=== PATIENT | male | born 1935 | race Caucasian/White ===

== ENCOUNTER 2021-04-15 18:45 | Inpatient (IN) | payer MEDICAID, OTHER ==
[~2021-04-15] VITALS: Ht 165.1 cm; Wt 59.0 kg
[~2021-04-15 18:45] MED LIST: METF-414 PO
[2021-04-15] MEDS ORDERED: ACETAMINOPHEN 650MG SUPP PR STA (19:24)
[2021-04-15] MEDS ORDERED: AZITHROMYCIN 500MG/250ML 250 ML IV ONE (19:30)
[2021-04-15] MEDS ORDERED: CEFTRIAXONE 1 G PREMIX 50 ML IV ONE (19:30)
[2021-04-15] MEDS ORDERED: SODIUM CHLORIDE 0.9% 1,000 ML IV ONE (19:30)
[2021-04-15 20:13] LABS: CHLORIDE 105 mEq/L (98-107)
[2021-04-15 20:22] LABS: CREATINE KINASE 118 IU/L (39-308)
[2021-04-15 20:26] LABS: HEMATOCRIT. 37.9 % (42.0-52.0); HEMOGLOBIN. 12.6 g/dL (14.0-18.0); MEAN CORPUSCULAR HEMOGLOBIN 29.3 pg (28.0-32.0); MEAN CORPUSCULAR VOLUME 88.6 fL (80.0-94.0); MEAN PLATELET VOLUME 8.5 fl (7.4-10.4); PLATELET 309 x1000/uL (130-400); RED BLOOD CELL COUNT 4.28 mill/uL (4.7-6.1); RED CELL DISTRIBUTION WIDTH 13.6 % (11.6-14.6)
[2021-04-15] MEDS ORDERED: DEXAMETHASONE 10 MG/ML VIAL IV NR (20:45)
[2021-04-15 22:49] LABS: PLATELET ESTIMATE NORMAL
[2021-04-15] MEDS ORDERED: MAGNESIUM/ALUMINUM HYDROXIDE/SIMETHICONE 30ML UDC PO PRN (23:00)
[2021-04-15] MEDS ORDERED: ACETAMINOPHEN 325MG TABLET PO PRN (23:00)
[2021-04-15] MEDS ORDERED: CLONIDINE 0.1MG TABLET PO PRN (23:00)
[2021-04-15] MEDS ORDERED: DOCUSATE SODIUM 100MG CAPSULE PO PRN (23:00)
[2021-04-15] MEDS: PANTOPRAZOLE 40MG DR TABLET PO SCH (23:00)
[2021-04-15] MEDS ORDERED: NALOXONE HCL 0.4 MG/ML 1ML VIAL IV PRN (23:45)
[2021-04-16] MEDS ORDERED: ALBUTEROL 6.7GM HFA INHALER ORI PRN
[2021-04-16 04:24] LABS: HEMATOCRIT. 34.6 % (42.0-52.0); HEMOGLOBIN. 11.6 g/dL (14.0-18.0); MEAN CORPUSCULAR HEMOGLOBIN 29.3 pg (28.0-32.0); MEAN CORPUSCULAR VOLUME 87.5 fL (80.0-94.0); MEAN PLATELET VOLUME 8.7 fl (7.4-10.4); PLATELET 284 x1000/uL (130-400); RED BLOOD CELL COUNT 3.96 mill/uL (4.7-6.1); RED CELL DISTRIBUTION WIDTH 13.5 % (11.6-14.6)
[2021-04-16 04:32] LABS: CHLORIDE 107 mEq/L (98-107)
[2021-04-16 04:40] LABS: LDL CHOLESTEROL 62 mg/dL (5-100)
[2021-04-16 04:41] LABS: CREATINE KINASE 147 IU/L (39-308)
[2021-04-16 04:42] LABS: CREATINE KINASE MB FRACTION 3.2 ng/mL (0.5-3.6); HDL CHOLESTEROL 43 mg/dL (40-59)
[2021-04-16 05:14] LABS: PLATELET ESTIMATE NORMAL
[2021-04-16] MEDS: PANTOPRAZOLE 40MG DR TABLET PO SCH (08:55)
[2021-04-16] MEDS: ENOXAPARIN 40MG/0.4ML SYR SUBCUT SCH (08:56)
[2021-04-16] MEDS ORDERED: DEXAMETHASONE 4MG/ML 1ML VIAL IV SCH (09:00)
[2021-04-16 17:25] VITALS: BP 133/72
[2021-04-16] MEDS: BLOOD SUGAR DIAGNOSTIC STRIP TEST SCH ×2 (17:41→21:32)
[2021-04-16] MEDS: INSULIN LISPRO 100 UNITS/ML SUBCUT SCH ×2 (18:39→21:41)
[2021-04-16 20:00] VITALS: BP 124/63
[2021-04-16] MEDS ORDERED: AZITHROMYCIN 500 MG in DEXT 5% WATER 250 ML IV SCH (20:00)
[2021-04-16] MEDS ORDERED: CEFTRIAXONE 1,000 MG in DEXTROSE 5% WATER 50 ML IV SCH (21:00)
[2021-04-16 21:24] LABS: CREATINE KINASE 170 IU/L (39-308)
[2021-04-16 21:26] LABS: CREATINE KINASE MB FRACTION 5.4 ng/mL (0.5-3.6)
[2021-04-16] MEDS ORDERED: INSULIN GLARGINE UD 100 UNITS/ML SYR SUBCUT SCH ×2 (22:00→23:00)
[2021-04-17 02:58] LABS: CLARITY URINE CLEAR (CLEAR); COLOR URINE YELLOW (YELLOW); PH URINE 5.5 (4.5-8.0); SPECIFIC GRAVITY URINE 1.031 (1.005-1.030)
[2021-04-17 02:59] LABS: PROTEIN URINE 1+ (NEGATIVE)
[2021-04-17 03:00] LABS: KETONES URINE TRACE (NEGATIVE); LEUKOCYTE ESTERASE URINE NEGATIVE (NEGATIVE); NITRITE URINE NEGATIVE (NEGATIVE); OCCULT BLOOD URINE NEGATIVE (NEGATIVE); UROBILINOGEN URINE 0.2 E.U./dL (0.2-1.0)
[2021-04-17] MEDS: GUAIFENESIN-DM 200MG-20MG/10ML UDC PO PRN (04:25)
[2021-04-17 06:00] VITALS: BP_SYST 112; BP_SYST 153; BP_DIAS 62; BP_DIAS 94
[2021-04-17] MEDS: BLOOD SUGAR DIAGNOSTIC STRIP TEST SCH ×4 (07:33→21:00)
[2021-04-17 08:06] LABS: HEMATOCRIT. 36.2 % (42.0-52.0); HEMOGLOBIN. 11.9 g/dL (14.0-18.0); MEAN CORPUSCULAR HEMOGLOBIN 28.6 pg (28.0-32.0); MEAN CORPUSCULAR VOLUME 87.5 fL (80.0-94.0); MEAN PLATELET VOLUME 8.9 fl (7.4-10.4); PLATELET 332 x1000/uL (130-400); RED BLOOD CELL COUNT 4.14 mill/uL (4.7-6.1); RED CELL DISTRIBUTION WIDTH 13.4 % (11.6-14.6)
[2021-04-17] MEDS: PANTOPRAZOLE 40MG DR TABLET PO SCH (08:18)
[2021-04-17] MEDS: INSULIN LISPRO 100 UNITS/ML SUBCUT SCH ×4 (08:19→21:00)
[2021-04-17] MEDS: DEXAMETHASONE 4MG/ML 1ML VIAL IV SCH (08:19)
[2021-04-17] MEDS: ENOXAPARIN 40MG/0.4ML SYR SUBCUT SCH (08:20)
[2021-04-17 08:42] LABS: CHLORIDE 108 mEq/L (98-107)
[2021-04-17 12:00] VITALS: BP 111/59
[2021-04-17] MEDS: CEFTRIAXONE 1,000 MG in DEXTROSE 5% WATER 50 ML IV SCH (13:33)
[2021-04-17] MEDS: AZITHROMYCIN 500 MG in DEXT 5% WATER 250 ML IV SCH (13:33)
[2021-04-17 16:00] VITALS: BP 108/54
[2021-04-17 17:59] LABS: PLATELET ESTIMATE NORMAL
[2021-04-17 20:00] VITALS: BP 123/78
[2021-04-17] MEDS: BENZONATATE 100MG CAPSULE PO PRN (21:11)
[2021-04-17] MEDS: GUAIFENESIN 600MG ER TABLET PO SCH (21:14)
[2021-04-17] MEDS: INSULIN GLARGINE UD 100 UNITS/ML SYR SUBCUT SCH (21:17)
[2021-04-18 00:05] VITALS: BP 123/70
[2021-04-18 04:00] VITALS: BP 121/80
[2021-04-18] MEDS: BLOOD SUGAR DIAGNOSTIC STRIP TEST SCH ×4 (05:40→20:57)
[2021-04-18] MEDS: INSULIN LISPRO 100 UNITS/ML SUBCUT SCH ×4 (05:42→21:00)
[2021-04-18 08:00] VITALS: BP 115/67
[2021-04-18] MEDS: ENOXAPARIN 40MG/0.4ML SYR SUBCUT SCH (08:50)
[2021-04-18] MEDS: DEXAMETHASONE 4MG/ML 1ML VIAL IV SCH (08:51)
[2021-04-18] MEDS: GUAIFENESIN 600MG ER TABLET PO SCH ×2 (08:51→21:34)
[2021-04-18] MEDS: FAMOTIDINE 20MG TABLET PO SCH (08:51)
[2021-04-18 09:19] LABS: CHLORIDE 107 mEq/L (98-107)
[2021-04-18 09:27] LABS: HEMOGLOBIN. 12.8 g/dL (14.0-18.0); MEAN CORPUSCULAR HEMOGLOBIN 28.7 pg (28.0-32.0); MEAN CORPUSCULAR VOLUME 87.8 fL (80.0-94.0); MEAN PLATELET VOLUME 9.1 fl (7.4-10.4); PLATELET 336 x1000/uL (130-400); RED BLOOD CELL COUNT 4.45 mill/uL (4.7-6.1); RED CELL DISTRIBUTION WIDTH 13.8 % (11.6-14.6)
[2021-04-18] MEDS: INSULIN GLARGINE UD 100 UNITS/ML SYR SUBCUT SCH ×2 (10:33→21:39)
[2021-04-18 10:39] LABS: BG CARBOXYHEMOGLOBIN 0.5 % (0.5-1.5); BG DEOXYHEMOGLOBIN 12.7 % (0.0-5.0); BG FRACTION INSPIRED OXYGEN 99.8; BG HCO3 ACT 24.2 mmol/L (22.0-26.0); BG METHEMOGLOBIN 0.3 % (0.0-1.5); BG OXYGEN SATURATION 87.2 % (92.0-98.5); BG OXYHEMOGLOBIN 86.5 % (94.0-97.0); BG PCO2 33.8 mmHg (35.0-45.0); BG PH 7.472 (7.350-7.450); BG PO2 51.4 mmHg (75.0-100.0); BG SAMPLE SITE RIGHT RADIAL; BG TOTAL HEMOGLOBIN 12.9 g/dL (12.0-18.0); BG VENT MODE MASK - NRB
[2021-04-18 11:59] VITALS: BP 141/78
[2021-04-18] MEDS: CEFTRIAXONE 1,000 MG in DEXTROSE 5% WATER 50 ML IV SCH (12:14)
[2021-04-18] MEDS: AZITHROMYCIN 500 MG in DEXT 5% WATER 250 ML IV SCH (13:08)
[2021-04-18 15:58] VITALS: BP 140/86
[2021-04-18 20:00] VITALS: BP 154/98
[2021-04-18 20:21] LABS: PLATELET ESTIMATE NORMAL
[2021-04-18] MEDS: HYDROCODONE/ACETAMINOPHEN 5/325MG TABLET PO PRN (21:35)
[2021-04-19] VITALS (7 sets, daily range): BP systolic 110–140; BP diastolic 67–82
[2021-04-19] MEDS: BENZONATATE 100MG CAPSULE PO PRN (02:36)
[2021-04-19] MEDS: GUAIFENESIN-DM 200MG-20MG/10ML UDC PO PRN (02:36)
[2021-04-19] MEDS: HYDROCODONE/ACETAMINOPHEN 5/325MG TABLET PO PRN ×3 (02:37→15:45)
[2021-04-19] MEDS: BLOOD SUGAR DIAGNOSTIC STRIP TEST SCH ×4 (06:01→20:54)
[2021-04-19] MEDS: FAMOTIDINE 20MG TABLET PO SCH (08:33)
[2021-04-19] MEDS: GUAIFENESIN 600MG ER TABLET PO SCH ×2 (08:33→20:16)
[2021-04-19] MEDS: DEXAMETHASONE 4MG/ML 1ML VIAL IV SCH (08:36)
[2021-04-19] MEDS: INSULIN LISPRO 100 UNITS/ML SUBCUT SCH ×4 (08:36→20:54)
[2021-04-19] MEDS: ENOXAPARIN 40MG/0.4ML SYR SUBCUT SCH (08:40)
[2021-04-19] MEDS: INSULIN GLARGINE UD 100 UNITS/ML SYR SUBCUT SCH ×2 (10:00→20:54)
[2021-04-19] MEDS ORDERED: LORAZEPAM 2MG/ML CPJ IV PRN (14:00)
[2021-04-19] MEDS: AZITHROMYCIN 500 MG in DEXT 5% WATER 250 ML IV SCH (14:16)
[2021-04-19] MEDS: CEFTRIAXONE 1,000 MG in DEXTROSE 5% WATER 50 ML IV SCH (14:16)
[2021-04-19] MEDS: DEXTROSE 50% WATER 50ML SYRINGE IV PRN (20:16)
[2021-04-20] VITALS: BP 137/75
[2021-04-20 04:00] VITALS: BP 136/81
[2021-04-20] MEDS: BLOOD SUGAR DIAGNOSTIC STRIP TEST SCH ×4 (07:01→21:00)
[2021-04-20] MEDS: INSULIN LISPRO 100 UNITS/ML SUBCUT SCH ×4 (07:01→21:00)
[2021-04-20 08:00] VITALS: BP 145/78
[2021-04-20] MEDS: FAMOTIDINE 20MG TABLET PO SCH (09:22)
[2021-04-20] MEDS: ENOXAPARIN 40MG/0.4ML SYR SUBCUT SCH (09:22)
[2021-04-20] MEDS: GUAIFENESIN 600MG ER TABLET PO SCH ×2 (09:22→22:27)
[2021-04-20] MEDS: DEXAMETHASONE 4MG/ML 1ML VIAL IV SCH (09:23)
[2021-04-20] MEDS: INSULIN GLARGINE UD 100 UNITS/ML SYR SUBCUT SCH ×2 (09:25→22:00)
[2021-04-20 12:00] VITALS: BP 119/58
[2021-04-20] MEDS: CEFTRIAXONE 1,000 MG in DEXTROSE 5% WATER 50 ML IV SCH (14:16)
[2021-04-20 16:00] VITALS: BP 128/62
[2021-04-20 20:00] VITALS: BP 131/84
[2021-04-21] VITALS: BP 145/84
[2021-04-21 04:00] VITALS: BP 133/78
[2021-04-21] MEDS: INSULIN LISPRO 100 UNITS/ML SUBCUT SCH ×4 (07:50→21:00)
[2021-04-21] MEDS: BLOOD SUGAR DIAGNOSTIC STRIP TEST SCH ×4 (07:50→21:59)
[2021-04-21 08:00] VITALS: BP 130/83
[2021-04-21 08:16] LABS: HEMATOCRIT. 39.1 % (42.0-52.0); HEMOGLOBIN. 12.7 g/dL (14.0-18.0); MEAN CORPUSCULAR HEMOGLOBIN 28.3 pg (28.0-32.0); MEAN CORPUSCULAR VOLUME 86.7 fL (80.0-94.0); MEAN PLATELET VOLUME 8.5 fl (7.4-10.4); PLATELET 259 x1000/uL (130-400); RED BLOOD CELL COUNT 4.51 mill/uL (4.7-6.1); RED CELL DISTRIBUTION WIDTH 13.6 % (11.6-14.6)
[2021-04-21 08:22] LABS: CHLORIDE 105 mEq/L (98-107)
[2021-04-21] MEDS: GUAIFENESIN 600MG ER TABLET PO SCH ×2 (10:08→22:13)
[2021-04-21] MEDS: FAMOTIDINE 20MG TABLET PO SCH (10:09)
[2021-04-21] MEDS: ENOXAPARIN 40MG/0.4ML SYR SUBCUT SCH (10:09)
[2021-04-21] MEDS: DEXAMETHASONE 4MG/ML 1ML VIAL IV SCH (10:09)
[2021-04-21] MEDS: INSULIN GLARGINE UD 100 UNITS/ML SYR SUBCUT SCH ×2 (10:10→22:13)
[2021-04-21 12:00] VITALS: BP 126/78
[2021-04-21 12:48] LABS: PLATELET ESTIMATE NORMAL
[2021-04-21 16:00] VITALS: BP 124/71
[2021-04-21 20:00] VITALS: BP 135/77
[2021-04-22] VITALS: BP 117/77
[2021-04-22 04:00] VITALS: BP 109/65
[2021-04-22] MEDS: BLOOD SUGAR DIAGNOSTIC STRIP TEST SCH ×4 (07:40→21:00)
[2021-04-22 07:51] LABS: HEMATOCRIT. 38.6 % (42.0-52.0); HEMOGLOBIN. 12.7 g/dL (14.0-18.0); MEAN CORPUSCULAR HEMOGLOBIN 28.5 pg (28.0-32.0); MEAN CORPUSCULAR VOLUME 86.5 fL (80.0-94.0); MEAN PLATELET VOLUME 8.5 fl (7.4-10.4); PLATELET 264 x1000/uL (130-400); RED BLOOD CELL COUNT 4.46 mill/uL (4.7-6.1); RED CELL DISTRIBUTION WIDTH 13.7 % (11.6-14.6)
[2021-04-22 07:56] LABS: CHLORIDE 107 mEq/L (98-107)
[2021-04-22 08:00] VITALS: BP 123/76
[2021-04-22] MEDS: INSULIN LISPRO 100 UNITS/ML SUBCUT SCH ×4 (08:10→21:19)
[2021-04-22] MEDS: FAMOTIDINE 20MG TABLET PO SCH (09:41)
[2021-04-22] MEDS: ENOXAPARIN 40MG/0.4ML SYR SUBCUT SCH (09:41)
[2021-04-22] MEDS: DEXAMETHASONE 4MG/ML 1ML VIAL IV SCH (09:42)
[2021-04-22] MEDS: INSULIN GLARGINE UD 100 UNITS/ML SYR SUBCUT SCH ×2 (09:42→21:19)
[2021-04-22] MEDS: GUAIFENESIN 600MG ER TABLET PO SCH ×2 (09:45→21:17)
[2021-04-22 11:02] LABS: PLATELET ESTIMATE NORMAL
[2021-04-22 12:00] VITALS: BP 125/69
[2021-04-22 16:00] VITALS: BP 125/77
[2021-04-22 20:00] VITALS: BP 149/85
[2021-04-23] VITALS: BP 108/62
[2021-04-23 04:00] VITALS: BP 121/71
[2021-04-23] MEDS: BLOOD SUGAR DIAGNOSTIC STRIP TEST SCH ×4 (05:53→21:00)
[2021-04-23] MEDS: DEXTROSE 50% WATER 50ML SYRINGE IV PRN (05:58)
[2021-04-23 06:13] LABS: HEMATOCRIT. 37.8 % (42.0-52.0); HEMOGLOBIN. 12.9 g/dL (14.0-18.0); MEAN CORPUSCULAR HEMOGLOBIN 29.3 pg (28.0-32.0); MEAN PLATELET VOLUME 8.6 fl (7.4-10.4); PLATELET 267 x1000/uL (130-400); RED CELL DISTRIBUTION WIDTH 13.4 % (11.6-14.6)
[2021-04-23 06:37] LABS: CHLORIDE 106 mEq/L (98-107)
[2021-04-23 08:00] VITALS: BP 124/76
[2021-04-23] MEDS: INSULIN LISPRO 100 UNITS/ML SUBCUT SCH ×4 (08:10→21:00)
[2021-04-23] MEDS: FAMOTIDINE 20MG TABLET PO SCH (09:30)
[2021-04-23] MEDS: GUAIFENESIN 600MG ER TABLET PO SCH ×2 (09:31→22:03)
[2021-04-23] MEDS: DEXAMETHASONE 4MG/ML 1ML VIAL IV SCH (09:31)
[2021-04-23] MEDS: ENOXAPARIN 40MG/0.4ML SYR SUBCUT SCH (09:31)
[2021-04-23] MEDS: INSULIN GLARGINE UD 100 UNITS/ML SYR SUBCUT SCH ×2 (10:00→14:40)
[2021-04-23 12:00] VITALS: BP 118/79
[2021-04-23 16:00] VITALS: BP 118/72
[2021-04-23 16:08] LABS: PLATELET ESTIMATE NORMAL
[2021-04-23 17:16] LABS: BG BASE EXCESS 2.9 mmol/L (-2.0-2.0); BG CARBOXYHEMOGLOBIN 1.1 % (0.5-1.5); BG DEOXYHEMOGLOBIN 7.2 % (0.0-5.0); BG FRACTION INSPIRED OXYGEN 100; BG HCO3 ACT 26.3 mmol/L (22.0-26.0); BG METHEMOGLOBIN 0.1 % (0.0-1.5); BG OXYGEN SATURATION 92.7 % (92.0-98.5); BG OXYHEMOGLOBIN 91.6 % (94.0-97.0); BG PCO2 36.7 mmHg (35.0-45.0); BG PH 7.473 (7.350-7.450); BG PO2 64.7 mmHg (75.0-100.0); BG SAMPLE SITE LEFT RADIAL; BG TOTAL HEMOGLOBIN 14.8 g/dL (12.0-18.0); BG VENT MODE MASK - NRB
[2021-04-23 20:00] VITALS: BP 114/63
[2021-04-24 00:32] VITALS: BP 114/76
[2021-04-24 04:00] VITALS: BP 115/66
[2021-04-24 05:24] LABS: HEMATOCRIT. 39.4 % (42.0-52.0); HEMOGLOBIN. 13.3 g/dL (14.0-18.0); MEAN CORPUSCULAR HEMOGLOBIN 29.1 pg (28.0-32.0); MEAN CORPUSCULAR VOLUME 86.4 fL (80.0-94.0); MEAN PLATELET VOLUME 8.5 fl (7.4-10.4); PLATELET 254 x1000/uL (130-400); RED BLOOD CELL COUNT 4.56 mill/uL (4.7-6.1); RED CELL DISTRIBUTION WIDTH 13.2 % (11.6-14.6)
[2021-04-24 06:46] LABS: CHLORIDE 110 mEq/L (98-107)
[2021-04-24] MEDS: BLOOD SUGAR DIAGNOSTIC STRIP TEST SCH ×4 (07:36→21:29)
[2021-04-24] MEDS: INSULIN LISPRO 100 UNITS/ML SUBCUT SCH ×4 (07:37→21:00)
[2021-04-24 08:00] VITALS: BP 117/64
[2021-04-24] MEDS: ENOXAPARIN 40MG/0.4ML SYR SUBCUT SCH (10:04)
[2021-04-24] MEDS: DEXAMETHASONE 10 MG/ML VIAL IV SCH (10:04)
[2021-04-24] MEDS: GUAIFENESIN 600MG ER TABLET PO SCH ×2 (10:04→21:52)
[2021-04-24] MEDS: FAMOTIDINE 20MG TABLET PO SCH (10:06)
[2021-04-24] MEDS: INSULIN GLARGINE UD 100 UNITS/ML SYR SUBCUT SCH (10:07)
[2021-04-24 12:00] VITALS: BP 105/68
[2021-04-24 16:00] VITALS: BP 140/77
[2021-04-24 17:23] LABS: PLATELET ESTIMATE NORMAL
[2021-04-25] VITALS (11 sets, daily range): BP systolic 96–126; BP diastolic 57–80
[2021-04-25] MEDS: INSULIN LISPRO 100 UNITS/ML SUBCUT SCH ×4 (08:00→21:03)
[2021-04-25] MEDS: DEXTROSE 50% WATER 50ML SYRINGE IV PRN (08:24)
[2021-04-25] MEDS: BLOOD SUGAR DIAGNOSTIC STRIP TEST SCH ×4 (08:24→21:03)
[2021-04-25] MEDS: DEXAMETHASONE 10 MG/ML VIAL IV SCH (08:24)
[2021-04-25] MEDS: GUAIFENESIN 600MG ER TABLET PO SCH ×2 (08:25→21:03)
[2021-04-25] MEDS: ENOXAPARIN 40MG/0.4ML SYR SUBCUT SCH (08:25)
[2021-04-25] MEDS: FAMOTIDINE 20MG TABLET PO SCH (08:25)
[2021-04-25] MEDS: ALBUTEROL (0.083%) 2.5MG/3ML NEB HHN PRN ×3 (09:36→15:45)
[2021-04-25] MEDS: INSULIN GLARGINE UD 100 UNITS/ML SYR SUBCUT SCH (10:00)
[2021-04-26] VITALS (12 sets, daily range): BP systolic 100–124; BP diastolic 58–78
[2021-04-26] MEDS: BLOOD SUGAR DIAGNOSTIC STRIP TEST SCH ×4 (07:30→21:01)
[2021-04-26] MEDS: INSULIN LISPRO 100 UNITS/ML SUBCUT SCH ×4 (08:00→21:01)
[2021-04-26] MEDS: ENOXAPARIN 40MG/0.4ML SYR SUBCUT SCH (09:15)
[2021-04-26] MEDS: FAMOTIDINE 20MG TABLET PO SCH (09:15)
[2021-04-26] MEDS: GUAIFENESIN 600MG ER TABLET PO SCH ×2 (09:15→20:59)
[2021-04-26] MEDS: DEXAMETHASONE 10 MG/ML VIAL IV SCH (09:15)
[2021-04-26] MEDS: INSULIN GLARGINE UD 100 UNITS/ML SYR SUBCUT SCH (10:07)
[2021-04-26] MEDS: CHOLECALCIFEROL (D3) 1000 UNIT TABLET PO SCH (10:08)
[2021-04-26] MEDS: ZINC SULFATE 220 MG ( 50 ) CAPSULE PO SCH (10:08)
[2021-04-26] MEDS: ASCORBIC ACID 500 MG TABLET PO SCH (10:08)
[2021-04-27] VITALS (11 sets, daily range): BP systolic 99–127; BP diastolic 64–80
[2021-04-27] MEDS: BLOOD SUGAR DIAGNOSTIC STRIP TEST SCH ×4 (07:25→20:49)
[2021-04-27] MEDS: INSULIN LISPRO 100 UNITS/ML SUBCUT SCH ×4 (07:25→20:49)
[2021-04-27 08:30] LABS: CHLORIDE 107 mEq/L (98-107)
[2021-04-27] MEDS: ASCORBIC ACID 500 MG TABLET PO SCH (08:39)
[2021-04-27] MEDS: GUAIFENESIN 600MG ER TABLET PO SCH ×2 (08:39→20:47)
[2021-04-27] MEDS: ENOXAPARIN 40MG/0.4ML SYR SUBCUT SCH (08:39)
[2021-04-27] MEDS: CHOLECALCIFEROL (D3) 1000 UNIT TABLET PO SCH (08:39)
[2021-04-27] MEDS: DEXAMETHASONE 10 MG/ML VIAL IV SCH (08:39)
[2021-04-27] MEDS: FAMOTIDINE 20MG TABLET PO SCH (08:40)
[2021-04-27] MEDS: ZINC SULFATE 220 MG ( 50 ) CAPSULE PO SCH (08:40)
[2021-04-27 08:42] LABS: HEMATOCRIT. 51.2 % (42.0-52.0); HEMOGLOBIN. 16.4 g/dL (14.0-18.0); MEAN CORPUSCULAR HEMOGLOBIN 28.2 pg (28.0-32.0); MEAN CORPUSCULAR VOLUME 88.2 fL (80.0-94.0); RED BLOOD CELL COUNT 5.81 mill/uL (4.7-6.1); RED CELL DISTRIBUTION WIDTH 13.6 % (11.6-14.6)
[2021-04-27] MEDS ORDERED: LACTULOSE 20G/30ML UDC PO PRN (10:00)
[2021-04-27 10:57] LABS: PLATELET ESTIMATE NORMAL
[2021-04-27 10:58] LABS: MEAN PLATELET VOLUME 9.8 fl (7.4-10.4)
[2021-04-27 10:59] LABS: PLATELET 233 x1000/uL (130-400)
[2021-04-27] MEDS: INSULIN GLARGINE UD 100 UNITS/ML SYR SUBCUT SCH (11:09)
[2021-04-27] MEDS: ALBUTEROL (0.083%) 2.5MG/3ML NEB HHN PRN (21:24)
[2021-04-28] VITALS (14 sets, daily range): BP systolic 90–115; BP diastolic 59–85
[2021-04-28] MEDS: ALBUTEROL (0.083%) 2.5MG/3ML NEB HHN PRN ×2 (00:01→03:33)
[2021-04-28] MEDS: BLOOD SUGAR DIAGNOSTIC STRIP TEST SCH ×4 (07:30→20:32)
[2021-04-28] MEDS: INSULIN LISPRO 100 UNITS/ML SUBCUT SCH ×4 (08:00→20:32)
[2021-04-28] MEDS: ASCORBIC ACID 500 MG TABLET PO SCH (09:55)
[2021-04-28] MEDS: CHOLECALCIFEROL (D3) 1000 UNIT TABLET PO SCH (09:55)
[2021-04-28] MEDS: FAMOTIDINE 20MG TABLET PO SCH (09:55)
[2021-04-28] MEDS: ZINC SULFATE 220 MG ( 50 ) CAPSULE PO SCH (09:55)
[2021-04-28] MEDS: DEXAMETHASONE 10 MG/ML VIAL IV SCH (09:56)
[2021-04-28] MEDS: GUAIFENESIN 600MG ER TABLET PO SCH ×2 (09:57→21:51)
[2021-04-28] MEDS: BISACODYL 10MG SUPP PR SCH (10:10)
[2021-04-28] MEDS: ENOXAPARIN 40MG/0.4ML SYR SUBCUT SCH (10:10)
[2021-04-28] MEDS: INSULIN GLARGINE UD 100 UNITS/ML SYR SUBCUT SCH (10:11)
[2021-04-28] MEDS ORDERED: ACETAMINOPHEN 325MG TABLET PO PRN (20:45)
[2021-04-29] VITALS (12 sets, daily range): BP systolic 105–126; BP diastolic 57–77
[2021-04-29] MEDS: BLOOD SUGAR DIAGNOSTIC STRIP TEST SCH ×4 (07:30→21:46)
[2021-04-29] MEDS: INSULIN LISPRO 100 UNITS/ML SUBCUT SCH ×4 (08:00→21:00)
[2021-04-29] MEDS: ASCORBIC ACID 500 MG TABLET PO SCH (09:03)
[2021-04-29] MEDS: GUAIFENESIN 600MG ER TABLET PO SCH ×2 (09:03→21:46)
[2021-04-29] MEDS: ZINC SULFATE 220 MG ( 50 ) CAPSULE PO SCH (09:03)
[2021-04-29] MEDS: FAMOTIDINE 20MG TABLET PO SCH (09:03)
[2021-04-29] MEDS: BISACODYL 10MG SUPP PR SCH (09:03)
[2021-04-29] MEDS: CHOLECALCIFEROL (D3) 1000 UNIT TABLET PO SCH (09:03)
[2021-04-29] MEDS: ENOXAPARIN 40MG/0.4ML SYR SUBCUT SCH (10:13)
[2021-04-29] MEDS: INSULIN GLARGINE UD 100 UNITS/ML SYR SUBCUT SCH (10:15)
[2021-04-30] VITALS (12 sets, daily range): BP systolic 101–120; BP diastolic 67–76
[2021-04-30] MEDS: INSULIN LISPRO 100 UNITS/ML SUBCUT SCH ×4 (08:00→21:11)
[2021-04-30] MEDS: BLOOD SUGAR DIAGNOSTIC STRIP TEST SCH ×4 (08:14→21:00)
[2021-04-30] MEDS: ZINC SULFATE 220 MG ( 50 ) CAPSULE PO SCH (08:18)
[2021-04-30] MEDS: FAMOTIDINE 20MG TABLET PO SCH (08:18)
[2021-04-30] MEDS: CHOLECALCIFEROL (D3) 1000 UNIT TABLET PO SCH (08:18)
[2021-04-30] MEDS: ENOXAPARIN 40MG/0.4ML SYR SUBCUT SCH (08:18)
[2021-04-30] MEDS: ASCORBIC ACID 500 MG TABLET PO SCH (08:18)
[2021-04-30] MEDS: BISACODYL 10MG SUPP PR SCH (08:19)
[2021-04-30] MEDS: GUAIFENESIN 600MG ER TABLET PO SCH ×2 (12:41→21:11)
[2021-04-30] MEDS: INSULIN GLARGINE UD 100 UNITS/ML SYR SUBCUT SCH (12:45)
[2021-04-30] MEDS: MEGESTROL ACETATE 400 MG/10 ML UDC PO SCH (13:46)
[2021-04-30] MEDS: DEXT 5%/LACTATED RINGERS 1,000 ML IV SCH (15:01)
[2021-05-01] VITALS (13 sets, daily range): BP systolic 95–126; BP diastolic 62–79
[2021-05-01] MEDS: DEXT 5%/LACTATED RINGERS 1,000 ML IV SCH ×3 (02:04→19:59)
[2021-05-01 07:06] LABS: CHLORIDE 117 mEq/L (98-107)
[2021-05-01 07:12] LABS: HEMATOCRIT. 42.8 % (42.0-52.0); HEMOGLOBIN. 13.9 g/dL (14.0-18.0); MEAN CORPUSCULAR HEMOGLOBIN 28.5 pg (28.0-32.0); MEAN CORPUSCULAR VOLUME 87.9 fL (80.0-94.0); MEAN PLATELET VOLUME 9.5 fl (7.4-10.4); PLATELET 270 x1000/uL (130-400); RED BLOOD CELL COUNT 4.87 mill/uL (4.7-6.1); RED CELL DISTRIBUTION WIDTH 13.6 % (11.6-14.6)
[2021-05-01] MEDS: BLOOD SUGAR DIAGNOSTIC STRIP TEST SCH ×4 (08:05→20:46)
[2021-05-01] MEDS: CHOLECALCIFEROL (D3) 1000 UNIT TABLET PO SCH (08:13)
[2021-05-01] MEDS: ZINC SULFATE 220 MG ( 50 ) CAPSULE PO SCH (08:13)
[2021-05-01] MEDS: FAMOTIDINE 20MG TABLET PO SCH (08:13)
[2021-05-01] MEDS: MEGESTROL ACETATE 400 MG/10 ML UDC PO SCH (08:13)
[2021-05-01] MEDS: ASCORBIC ACID 500 MG TABLET PO SCH (08:13)
[2021-05-01] MEDS: GUAIFENESIN 600MG ER TABLET PO SCH ×2 (08:14→20:46)
[2021-05-01] MEDS: ENOXAPARIN 40MG/0.4ML SYR SUBCUT SCH (08:14)
[2021-05-01] MEDS: BISACODYL 10MG SUPP PR SCH (08:14)
[2021-05-01] MEDS: INSULIN LISPRO 100 UNITS/ML SUBCUT SCH ×4 (08:15→20:45)
[2021-05-01] MEDS: INSULIN GLARGINE UD 100 UNITS/ML SYR SUBCUT SCH (10:30)
[2021-05-01 21:24] LABS: PLATELET ESTIMATE NORMAL
[2021-05-02] VITALS (12 sets, daily range): BP systolic 108–144; BP diastolic 63–90
[2021-05-02] MEDS: DEXT 5%/LACTATED RINGERS 1,000 ML IV SCH ×2 (05:57→16:01)
[2021-05-02] MEDS: BLOOD SUGAR DIAGNOSTIC STRIP TEST SCH ×4 (07:58→20:49)
[2021-05-02] MEDS: ZINC SULFATE 220 MG ( 50 ) CAPSULE PO SCH (09:25)
[2021-05-02] MEDS: BISACODYL 10MG SUPP PR SCH (09:25)
[2021-05-02] MEDS: CHOLECALCIFEROL (D3) 1000 UNIT TABLET PO SCH (09:26)
[2021-05-02] MEDS: ASCORBIC ACID 500 MG TABLET PO SCH (09:26)
[2021-05-02] MEDS: ENOXAPARIN 40MG/0.4ML SYR SUBCUT SCH (09:26)
[2021-05-02] MEDS: FAMOTIDINE 20MG TABLET PO SCH (09:26)
[2021-05-02] MEDS: GUAIFENESIN 600MG ER TABLET PO SCH ×2 (09:27→20:48)
[2021-05-02] MEDS: INSULIN LISPRO 100 UNITS/ML SUBCUT SCH ×4 (09:28→20:49)
[2021-05-02] MEDS: INSULIN GLARGINE UD 100 UNITS/ML SYR SUBCUT SCH (09:29)
[2021-05-03] VITALS (12 sets, daily range): BP systolic 112–144; BP diastolic 57–84
[2021-05-03] MEDS: DEXT 5%/LACTATED RINGERS 1,000 ML IV SCH ×3 (01:00→11:37)
[2021-05-03] MEDS: ONDANSETRON HCL 4MG/2ML INJ IV PRN ×2 (02:45→23:05)
[2021-05-03] MEDS: BLOOD SUGAR DIAGNOSTIC STRIP TEST SCH ×4 (07:30→21:29)
[2021-05-03] MEDS: ASCORBIC ACID 500 MG TABLET PO SCH (09:07)
[2021-05-03] MEDS: FAMOTIDINE 20MG TABLET PO SCH (09:07)
[2021-05-03] MEDS: ZINC SULFATE 220 MG ( 50 ) CAPSULE PO SCH (09:07)
[2021-05-03] MEDS: CHOLECALCIFEROL (D3) 1000 UNIT TABLET PO SCH (09:07)
[2021-05-03] MEDS: ENOXAPARIN 40MG/0.4ML SYR SUBCUT SCH (09:08)
[2021-05-03] MEDS: BISACODYL 10MG SUPP PR SCH (09:08)
[2021-05-03] MEDS: INSULIN LISPRO 100 UNITS/ML SUBCUT SCH ×4 (09:09→21:00)
[2021-05-03] MEDS: GUAIFENESIN 600MG ER TABLET PO SCH ×2 (09:19→21:28)
[2021-05-03] MEDS: INSULIN GLARGINE UD 100 UNITS/ML SYR SUBCUT SCH (10:31)
[2021-05-03 12:42] LABS: HEMATOCRIT. 38.6 % (42.0-52.0); HEMOGLOBIN. 12.4 g/dL (14.0-18.0); MEAN CORPUSCULAR HEMOGLOBIN 28.5 pg (28.0-32.0); MEAN CORPUSCULAR VOLUME 88.5 fL (80.0-94.0); MEAN PLATELET VOLUME 9.3 fl (7.4-10.4); PLATELET 231 x1000/uL (130-400); RED BLOOD CELL COUNT 4.37 mill/uL (4.7-6.1); RED CELL DISTRIBUTION WIDTH 13.9 % (11.6-14.6)
[2021-05-03 12:53] LABS: CHLORIDE 115 mEq/L (98-107)
[2021-05-03 13:25] LABS: PLATELET ESTIMATE NORMAL
[2021-05-03] MEDS: DEXTROSE 50% WATER 50ML SYRINGE IV PRN (21:29)
[2021-05-04] VITALS (13 sets, daily range): BP systolic 100–131; BP diastolic 65–78
[2021-05-04] MEDS: BLOOD SUGAR DIAGNOSTIC STRIP TEST SCH ×4 (07:30→20:26)
[2021-05-04] MEDS: DEXT 5%/LACTATED RINGERS 1,000 ML IV SCH ×2 (08:00→17:23)
[2021-05-04] MEDS: INSULIN LISPRO 100 UNITS/ML SUBCUT SCH ×4 (08:00→20:26)
[2021-05-04] MEDS: ASCORBIC ACID 500 MG TABLET PO SCH (09:00)
[2021-05-04] MEDS: FAMOTIDINE 20MG TABLET PO SCH (09:00)
[2021-05-04] MEDS: ZINC SULFATE 220 MG ( 50 ) CAPSULE PO SCH (09:00)
[2021-05-04] MEDS: CHOLECALCIFEROL (D3) 1000 UNIT TABLET PO SCH (09:00)
[2021-05-04] MEDS: GUAIFENESIN 600MG ER TABLET PO SCH ×2 (09:00→21:13)
[2021-05-04] MEDS: ENOXAPARIN 40MG/0.4ML SYR SUBCUT SCH (09:00)
[2021-05-04] MEDS: BISACODYL 10MG SUPP PR SCH (09:00)
[2021-05-04] MEDS: INSULIN GLARGINE UD 100 UNITS/ML SYR SUBCUT SCH (10:00)
[2021-05-04] MEDS ORDERED: DEXT 5%/0.45% NACL 1000ML 1,000 ML IV SCH (21:00)
[2021-05-05] VITALS (10 sets, daily range): BP systolic 94–142; BP diastolic 56–75
[2021-05-05 06:56] LABS: CHLORIDE 107 mEq/L (98-107)
[2021-05-05 07:02] LABS: HEMATOCRIT. 38.7 % (42.0-52.0); HEMOGLOBIN. 12.9 g/dL (14.0-18.0); MEAN CORPUSCULAR HEMOGLOBIN 28.8 pg (28.0-32.0); MEAN CORPUSCULAR VOLUME 86.3 fL (80.0-94.0); MEAN PLATELET VOLUME 9.8 fl (7.4-10.4); PLATELET 182 x1000/uL (130-400); RED BLOOD CELL COUNT 4.48 mill/uL (4.7-6.1)
[2021-05-05] MEDS: BLOOD SUGAR DIAGNOSTIC STRIP TEST SCH ×4 (07:30→20:12)
[2021-05-05] MEDS: INSULIN LISPRO 100 UNITS/ML SUBCUT SCH ×4 (08:00→20:36)
[2021-05-05] MEDS: GUAIFENESIN 600MG ER TABLET PO SCH ×2 (09:00→20:37)
[2021-05-05] MEDS: ZINC SULFATE 220 MG ( 50 ) CAPSULE PO SCH (09:00)
[2021-05-05] MEDS: CHOLECALCIFEROL (D3) 1000 UNIT TABLET PO SCH (09:00)
[2021-05-05] MEDS: ASCORBIC ACID 500 MG TABLET PO SCH (09:00)
[2021-05-05] MEDS: ENOXAPARIN 40MG/0.4ML SYR SUBCUT SCH (09:00)
[2021-05-05] MEDS: FAMOTIDINE 20MG TABLET PO SCH (09:00)
[2021-05-05] MEDS: BISACODYL 10MG SUPP PR SCH (09:00)
[2021-05-05] MEDS ORDERED: INSULIN GLARGINE UD 100 UNITS/ML SYR SUBCUT SCH (10:00)
[2021-05-05] MEDS ORDERED: METOPROLOL TARTRATE 5MG/5ML VIAL IV PRN (11:45)
[2021-05-05] MEDS: DEXT 5%/0.45% NACL 1000ML 1,000 ML IV SCH (12:22)
[2021-05-05 13:28] LABS: CLARITY URINE TURBID (CLEAR); COLOR URINE DARK YELLOW (YELLOW); KETONES URINE 1+ (NEGATIVE); LEUKOCYTE ESTERASE URINE 3+ (NEGATIVE); NITRITE URINE NEGATIVE (NEGATIVE); OCCULT BLOOD URINE 1+ (NEGATIVE); PH URINE 5.5 (4.5-8.0); PROTEIN URINE 1+ (NEGATIVE); SPECIFIC GRAVITY URINE 1.019 (1.005-1.030)
[2021-05-05 13:50] LABS: PLATELET ESTIMATE NORMAL
[2021-05-05] MEDS: CEFEPIME 1,000 MG in DEXTROSE 5% WATER 50 ML IV SCH (14:27)
[2021-05-05] MEDS: DOXYCYCLINE 100 MG in DEXT 5% WATER 100 ML IV SCH (14:30)
[2021-05-06] VITALS: BP 84/58
[2021-05-06] MEDS: CEFEPIME 1,000 MG in DEXTROSE 5% WATER 50 ML IV SCH (01:04)
[2021-05-06] MEDS: DOXYCYCLINE 100 MG in DEXT 5% WATER 100 ML IV SCH (01:51)
[2021-05-06 02:00] VITALS: BP 91/64
[2021-05-06 02:03] LABS: BG BASE EXCESS 4.3 mmol/L (-2.0-2.0); BG CARBOXYHEMOGLOBIN 0.8 % (0.5-1.5); BG DEOXYHEMOGLOBIN 10.2 % (0.0-5.0); BG HCO3 ACT 26.3 mmol/L (22.0-26.0); BG METHEMOGLOBIN 0.1 % (0.0-1.5); BG OXYGEN SATURATION 89.7 % (92.0-98.5); BG OXYHEMOGLOBIN 88.9 % (94.0-97.0); BG PCO2 31.3 mmHg (35.0-45.0); BG PH 7.542 (7.350-7.450); BG PO2 52.4 mmHg (75.0-100.0); BG SAMPLE SITE LEFT RADIAL; BG TOTAL HEMOGLOBIN 12.9 g/dL (12.0-18.0); BG TOTAL RESPIRATORY RATE 29 b/min
[2021-05-06 02:51] LABS: BG BASE EXCESS 3.5 mmol/L (-2.0-2.0); BG CARBOXYHEMOGLOBIN 0.9 % (0.5-1.5); BG DEOXYHEMOGLOBIN 10.3 % (0.0-5.0); BG FRACTION INSPIRED OXYGEN 100; BG HCO3 ACT 26.6 mmol/L (22.0-26.0); BG METHEMOGLOBIN 0.1 % (0.0-1.5); BG OXYGEN SATURATION 89.6 % (92.0-98.5); BG OXYHEMOGLOBIN 88.7 % (94.0-97.0); BG PCO2 35.3 mmHg (35.0-45.0); BG PH 7.495 (7.350-7.450); BG PO2 56.1 mmHg (75.0-100.0); BG SAMPLE SITE LEFT RADIAL; BG TOTAL HEMOGLOBIN 12.7 g/dL (12.0-18.0); BG TOTAL RESPIRATORY RATE 29 b/min; BG VENT MODE MASK - BIPAP
[2021-05-06] MEDS: DEXT 5%/0.45% NACL 1000ML 1,000 ML IV SCH (04:31)
[2021-05-06 06:10] LABS: CHLORIDE 109 mEq/L (98-107)
[2021-05-06 06:15] LABS: HEMOGLOBIN. 11.9 g/dL (14.0-18.0); MEAN CORPUSCULAR HEMOGLOBIN 28.7 pg (28.0-32.0); MEAN CORPUSCULAR VOLUME 87.1 fL (80.0-94.0); MEAN PLATELET VOLUME 9.7 fl (7.4-10.4); PLATELET 134 x1000/uL (130-400); RED BLOOD CELL COUNT 4.14 mill/uL (4.7-6.1)
[2021-05-06] MEDS ORDERED: MAGNESIUM SULFATE 4G IN WATER 100ML PREMIX IV ONE (09:09)
[2021-05-06] MEDS ORDERED: SODIUM BICARBONATE 8.4% 1 MEQ/ML 50ML SYR IV ONE (09:09)
[2021-05-06] MEDS ORDERED: EPINEPHRINE 0.1MG/ML (1:10,000) 10ML SYR ONE (09:09)
[2021-05-06] MEDS ORDERED: CALCIUM CHLORIDE 1GM/10ML SYR IV ONE (09:09)
[2021-05-06] MEDS ORDERED: AMIODARONE HCL 50MG/ML 3ML VIAL IV ONE (09:09)
[2021-05-06] MEDS ORDERED: DEXTROSE 50% WATER 50ML SYRINGE IV ONE (09:09)
[2021-05-06 13:52] LABS: PLATELET ESTIMATE NORMAL
== END 2021-05-06 11:02 | DRG 720 ==
LOC: ER 18:45 → MICUSO 22:28 → ENRESERV 04-16 09:26 → 7EST 04-16 15:51 → 7WST 04-16 17:07 → 5EST 04-25 01:40 → UNDODISIN 04-28 11:55
PROVIDERS: ADMIT Internal Medicine; ATTEND Internal Medicine
PROC: 5A0935A Assistance with Respiratory Ventilation, Less than 24 Consecutive Hours, High Flow/Velocity Cannula (ICD-10-PCS; 2021-04-19)
PROC: 5A0935A Assistance with Respiratory Ventilation, Less than 24 Consecutive Hours, High Flow/Velocity Cannula (ICD-10-PCS; 2021-04-20)
PROC: 5A0935A Assistance with Respiratory Ventilation, Less than 24 Consecutive Hours, High Flow/Velocity Cannula (ICD-10-PCS; 2021-04-21)
PROC: 5A0935A Assistance with Respiratory Ventilation, Less than 24 Consecutive Hours, High Flow/Velocity Cannula (ICD-10-PCS; 2021-04-22)
PROC: 5A0935A Assistance with Respiratory Ventilation, Less than 24 Consecutive Hours, High Flow/Velocity Cannula (ICD-10-PCS; 2021-04-23)
PROC: 5A0935A Assistance with Respiratory Ventilation, Less than 24 Consecutive Hours, High Flow/Velocity Cannula (ICD-10-PCS; 2021-04-24)
PROC: 5A0935A Assistance with Respiratory Ventilation, Less than 24 Consecutive Hours, High Flow/Velocity Cannula (ICD-10-PCS; 2021-04-25)
PROC: 5A0935A Assistance with Respiratory Ventilation, Less than 24 Consecutive Hours, High Flow/Velocity Cannula (ICD-10-PCS; 2021-04-26)
PROC: 5A0945A Assistance with Respiratory Ventilation, 24-96 Consecutive Hours, High Flow/Velocity Cannula (ICD-10-PCS; 2021-04-27)
PROC: 5A0935A Assistance with Respiratory Ventilation, Less than 24 Consecutive Hours, High Flow/Velocity Cannula (ICD-10-PCS; 2021-04-28)
PROC: 5A0955A Assistance with Respiratory Ventilation, Greater than 96 Consecutive Hours, High Flow/Velocity Cannula (ICD-10-PCS; 2021-04-29)
PROC: 5A09357 Assistance with Respiratory Ventilation, Less than 24 Consecutive Hours, Continuous Positive Airway Pressure (ICD-10-PCS; 2021-05-05)
PROC: 5A12012 Performance of Cardiac Output, Single, Manual (ICD-10-PCS; principal; 2021-05-06)
PROC: 5A1935Z Respiratory Ventilation, Less than 24 Consecutive Hours (ICD-10-PCS; 2021-05-06)
PROC: 0BH17EZ Insertion of Endotracheal Airway into Trachea, Via Natural or Artificial Opening (ICD-10-PCS; 2021-05-06)
PROC: 5A12012 Performance of Cardiac Output, Single, Manual (ICD-10-PCS; 2021-05-06)
DX: A41.89 Other specified sepsis (principal); J96.01 Acute respiratory failure with hypoxia; J12.82 Pneumonia due to coronavirus disease 2019; E11.649 Type 2 diabetes mellitus with hypoglycemia without coma; E11.65 Type 2 diabetes mellitus with hyperglycemia; D64.9 Anemia, unspecified; Z78.1 Physical restraint status; U07.1 COVID-19; J15.9 Unspecified bacterial pneumonia; I46.9 Cardiac arrest, cause unspecified; Z79.84 Long term (current) use of oral hypoglycemic drugs; Z91.19 Patient's noncompliance with other medical treatment and regimen; Z88.1 Allergy status to other antibiotic agents; Z88.8 Allergy status to other drugs, medicaments and biological substances
CPT/HCPCS: 36415; 36600; 71045; 80048; 80053; 80061; 81003; 82375; 82550; 82553; 82805; 82962; 83036; 83605; 83615; 83880; 84132; 84145; 84443; 84484; 85025; 85384; 86140; 87426; 87804; 93005; 93306; 93971; 94640; 94660; 97110; 97162; 97166; 97530; 97535; 99291; J0282; J0456; J0692; J0696; J1100; J1650; J1815; J2060; J2405; J3475; J3490; J7030; J7040; J7060; J7121